=== PATIENT | female | born 1970 | race Caucasian/White ===

== ENCOUNTER 2023-05-11 16:57 | Emergency (ER) | payer MEDICAID, OTHER ==
[~2023-05-11] VITALS: Ht 154.9 cm; Wt 80.7 kg
[2023-05-11 17:20] VITALS: BP 202/111; PULSE 88; RESP 16; TEMP 97.9; O2SAT 98
[2023-05-11] MEDS ORDERED: TOPUD MT (18:32)
[2023-05-11] MEDS ORDERED: IBUP-2028 MT (18:32)
== END 2023-05-11 19:30 | disposition home or self-care (01) ==
LOC: ER 16:57
DX: S82.891A Other fracture of right lower leg, initial encounter for closed fracture (principal); E11.9 Type 2 diabetes mellitus without complications; Z90.49 Acquired absence of other specified parts of digestive tract; Z98.890 Other specified postprocedural states; X58.XXXA Exposure to other specified factors, initial encounter; Y93.89 Activity, other specified; Y92.89 Other specified places as the place of occurrence of the external cause; Y99.8 Other external cause status
CPT/HCPCS: 29515; 73610; 73630; 99284